=== PATIENT | male | born 1960 | race Caucasian/White ===

== ENCOUNTER 2018-01-11 09:19 | Emergency (ER) | payer MEDICAID ==
[~2018-01-11] VITALS: Ht 188 cm; Wt 82.0 kg
[2018-01-11 09:26] VITALS: BP 163/82
[2018-01-11] MEDS ORDERED: LIDOCAINE HCL 1% 20ML VIAL (Pyxis) INJ MC ONE (12:30)
[2018-01-11] MEDS ORDERED: BACITRACIN ZINC OINT UDPKT TOP ONE (12:30)
== END 2018-01-11 12:32 | disposition left against medical advice (07) ==
LOC: ER 09:19
DX: L02.414 Cutaneous abscess of left upper limb (principal); F10.20 Alcohol dependence, uncomplicated; F17.200 Nicotine dependence, unspecified, uncomplicated; Z88.0 Allergy status to penicillin; Z98.890 Other specified postprocedural states; Y90.9 Presence of alcohol in blood, level not specified
CPT/HCPCS: 99281; J3490

== ENCOUNTER 2018-01-13 01:12 | Emergency (ER) | payer MEDICAID ==
[~2018-01-13] VITALS: Ht 185.4 cm; Wt 82.0 kg
[2018-01-13 01:13] VITALS: BP 106/59
== END 2018-01-13 04:50 | disposition left against medical advice (07) ==
LOC: ER 01:12
DX: Z53.21 Procedure and treatment not carried out due to patient leaving prior to being seen by health care provider (principal)

== ENCOUNTER 2018-03-10 09:51 | Emergency (ER) | payer MEDICAID ==
[~2018-03-10] VITALS: Ht 188 cm; Wt 84.0 kg
[2018-03-10] MEDS ORDERED: KETOROLAC 60MG/2ML VIAL IM ONE (11:00)
[2018-03-10 12:15] VITALS: BP 114/73
== END 2018-03-10 12:00 | disposition home or self-care (01) ==
LOC: ER 10:19
DX: S40.011A Contusion of right shoulder, initial encounter (principal); S43.401A Unspecified sprain of right shoulder joint, initial encounter; L98.499 Non-pressure chronic ulcer of skin of other sites with unspecified severity; X50.0XXA Overexertion from strenuous movement or load, initial encounter; Y93.89 Activity, other specified; F17.210 Nicotine dependence, cigarettes, uncomplicated; Y92.89 Other specified places as the place of occurrence of the external cause; Z88.0 Allergy status to penicillin
CPT/HCPCS: 73030; 96372; 99284; J1885; A4565

== ENCOUNTER 2019-03-20 09:33 | Emergency (ER) | payer MEDICAID ==
[~2019-03-20] VITALS: Ht 188 cm; Wt 85.0 kg
[2019-03-20] MEDS ORDERED: IBUPROFEN 600MG TABLET PO ONE (10:15)
[2019-03-20] MEDS ORDERED: CLINDAMYCIN HCL 150MG CAPSULE PO SCH (10:15)
[2019-03-20 10:24] VITALS: BP 122/78
== END 2019-03-20 10:25 | disposition home or self-care (01) ==
LOC: ER 09:33
DX: L03.113 Cellulitis of right upper limb (principal); R03.0 Elevated blood-pressure reading, without diagnosis of hypertension
CPT/HCPCS: 99283; A4565

== ENCOUNTER 2019-11-06 16:18 | Emergency (ER) | payer MEDICAID ==
[~2019-11-06] VITALS: Ht 190.5 cm; Wt 82.0 kg
[2019-11-06 16:20] VITALS: BP 162/96
[2019-11-06] MEDS ORDERED: ALBUTEROL (0.083%) 2.5MG/3ML NEB HHN STA (16:40)
[2019-11-06] MEDS ORDERED: IPRATROPIUM BROMIDE (0.02%) 0.5MG/2.5ML NEB HHN STA (16:40)
[2019-11-06] MEDS ORDERED: PREDNISONE 20MG TABLET PO STA (16:40)
[2019-11-06] MEDS ORDERED: ACETAMINOPHEN 325MG TABLET PO ONE (16:45)
[2019-11-06] MEDS ORDERED: TETANUS, DIPHTHERIA, PERTUSSIS VAC/PF 0.5ML (>7YR OLD) IM ONE (17:00)
[2019-11-06] MEDS ORDERED: BACITRACIN ZINC OINT UDPKT TOP ONE (17:00)
== END 2019-11-06 18:20 | disposition left against medical advice (07) ==
LOC: ER 16:18
DX: S09.8XXA Other specified injuries of head, initial encounter (principal); S20.219A Contusion of unspecified front wall of thorax, initial encounter; S40.812A Abrasion of left upper arm, initial encounter; S40.811A Abrasion of right upper arm, initial encounter; Y04.2XXA Assault by strike against or bumped into by another person, initial encounter; Y04.8XXA Assault by other bodily force, initial encounter; Y93.89 Activity, other specified; Y92.241 Library as the place of occurrence of the external cause
CPT/HCPCS: 71045; 99283; J7512

== ENCOUNTER 2021-04-18 11:48 | Emergency (ER) | payer MEDICAID ==
[~2021-04-18] VITALS: Ht 188 cm; Wt 82.0 kg
[~2021-04-18 11:48] MED LIST: METH10OR11 MT
[2021-04-18 12:35] LABS: BASOPHILS % 0.6 % (0.0-2.0); EOSINOPHILS % 1.5 % (0.0-5.0); HEMATOCRIT. 38.5 % (42.0-52.0); HEMOGLOBIN. 12.5 g/dL (14.0-18.0); LYMPHOCYTES % 22.4 % (20.0-50.0); MEAN CORPUSCULAR HEMOGLOBIN 29.4 pg (28.0-32.0); MEAN CORPUSCULAR VOLUME 90.3 fL (80.0-94.0); MEAN PLATELET VOLUME 7.9 fl (7.4-10.4); MONOCYTES % 8.8 % (2.0-8.0); NEUTROPHILS % 66.7 % (40.0-76.0); PLATELET 186 x1000/uL (130-400); RED BLOOD CELL COUNT 4.26 mill/uL (4.7-6.1); RED CELL DISTRIBUTION WIDTH 14.9 % (11.6-14.6)
[2021-04-18 12:41] LABS: CHLORIDE 111 mEq/L (98-107)
[2021-04-18 12:45] LABS: ETHANOL BLOOD < 10 mg/dL
[2021-04-18] MEDS ORDERED: SODIUM CHLORIDE 0.9% 1,000 ML IV ONE (15:45)
[2021-04-18 16:40] LABS: BASOPHILS % 0.4 % (0.0-2.0); EOSINOPHILS % 1.5 % (0.0-5.0); HEMATOCRIT. 39.8 % (42.0-52.0); HEMOGLOBIN. 12.9 g/dL (14.0-18.0); LYMPHOCYTES % 18.7 % (20.0-50.0); MEAN CORPUSCULAR HEMOGLOBIN 29.4 pg (28.0-32.0); MEAN CORPUSCULAR VOLUME 90.6 fL (80.0-94.0); MONOCYTES % 7.5 % (2.0-8.0); NEUTROPHILS % 71.9 % (40.0-76.0); RED BLOOD CELL COUNT 4.39 mill/uL (4.7-6.1)
[2021-04-18 16:47] LABS: CHLORIDE 110 mEq/L (98-107)
[2021-04-18 16:51] LABS: D-DIMER 0.57 mg/L FEU (<0.50); PARTIAL THROMBOPLASTIN TIME 28.4 sec (23.4-31.0); PROTHROMBIN TIME 10.9 sec (9.6-11.0)
[2021-04-18 16:52] LABS: ETHANOL BLOOD < 10 mg/dL
[2021-04-18 16:53] LABS: C REACTIVE PROTEIN QUANT 4.2 mg/L (0.0-3.0)
[2021-04-18 18:14] LABS: MEAN PLATELET VOLUME 8.6 fl (7.4-10.4); PLATELET 124 x1000/uL (130-400); PLATELET ESTIMATE SLIGHTLY DECREASED
[2021-04-18 20:05] LABS: CLARITY URINE CLEAR (CLEAR); COLOR URINE DARK YELLOW (YELLOW); KETONES URINE NEGATIVE (NEGATIVE); LEUKOCYTE ESTERASE URINE NEGATIVE (NEGATIVE); NITRITE URINE NEGATIVE (NEGATIVE); OCCULT BLOOD URINE NEGATIVE (NEGATIVE); PROTEIN URINE TRACE (NEGATIVE); SPECIFIC GRAVITY URINE 1.039 (1.005-1.030)
[2021-04-18 20:06] LABS: METHADONE URINE SCREEN PRESUMTIVE POSITIVE (NEGATIVE); OPIATES URINE SCREEN PRESUMTIVE POSITIVE (NEGATIVE); PHENCYCLIDINE URINE SCREEN NEGATIVE (NEGATIVE)
[2021-04-18 20:07] LABS: *AMPHETAMINES SCREEN URINE PRESUMTIVE POSITIVE (NEGATIVE); *BENZODIAZEPINES SCREEN URINE NEGATIVE (NEGATIVE); CANNABINOID URINE SCREEN PRESUMTIVE POSITIVE (NEGATIVE)
[2021-04-18 20:09] LABS: *BARBITURATES SCREEN URINE NEGATIVE (NEGATIVE)
[2021-04-18 20:10] LABS: *COCAINE SCREEN URINE NEGATIVE (NEGATIVE)
[2021-04-18 20:30] VITALS: BP 121/72
== END 2021-04-18 20:45 | disposition home or self-care (01) ==
LOC: ER 12:06
DX: F19.10 Other psychoactive substance abuse, uncomplicated (principal); I49.9 Cardiac arrhythmia, unspecified; R51.9 Headache, unspecified
CPT/HCPCS: 36415; 70450; 71045; 80053; 80305; 80320; 81003; 83605; 83690; 83880; 84484; 85025; 85379; 85610; 85730; 86140; 86850; 86900; 86901; 87426; 93005; 96360; 96361; 99285; J7030; G0480

== ENCOUNTER 2021-09-01 12:46 | Emergency (ER) | payer MEDICAID ==
[~2021-09-01] VITALS: Ht 180.3 cm; Wt 91.0 kg
[2021-09-01 13:23] LABS: BASOPHILS % 0.5 % (0.0-2.0); EOSINOPHILS % 1.2 % (0.0-5.0); HEMATOCRIT. 36.3 % (42.0-52.0); LYMPHOCYTES % 13.5 % (20.0-50.0); MEAN CORPUSCULAR HEMOGLOBIN 28.7 pg (28.0-32.0); MEAN CORPUSCULAR VOLUME 86.5 fL (80.0-94.0); MEAN PLATELET VOLUME 7.8 fl (7.4-10.4); MONOCYTES % 7.2 % (2.0-8.0); NEUTROPHILS % 77.6 % (40.0-76.0); PLATELET 179 x1000/uL (130-400); RED BLOOD CELL COUNT 4.19 mill/uL (4.7-6.1); RED CELL DISTRIBUTION WIDTH 14.1 % (11.6-14.6)
[2021-09-01 13:32] LABS: CHLORIDE 107 mEq/L (98-107)
[2021-09-01 13:50] LABS: ETHANOL BLOOD < 10 mg/dL
[2021-09-01 15:30] VITALS: BP 125/62
== END 2021-09-01 16:27 | disposition left against medical advice (07) ==
LOC: ER 12:46
DX: T40.2X1A Poisoning by other opioids, accidental (unintentional), initial encounter (principal); F11.129 Opioid abuse with intoxication, unspecified; R41.82 Altered mental status, unspecified; R53.1 Weakness; D64.9 Anemia, unspecified; F19.10 Other psychoactive substance abuse, uncomplicated; Y93.89 Activity, other specified; Y92.038 Other place in apartment as the place of occurrence of the external cause; Z88.0 Allergy status to penicillin
CPT/HCPCS: 36415; 71045; 80053; 80307; 80320; 82140; 82962; 83880; 84484; 85025; 93005; 99285; G0480

== ENCOUNTER 2022-07-08 11:07 | Emergency (ER) | payer MEDICAID ==
[~2022-07-08] VITALS: Ht 177.8 cm; Wt 77.5 kg
[2022-07-08] MEDS ORDERED: ONDANSETRON 4MG ODT PO STA (11:10)
[2022-07-08 11:17] VITALS: BP 177/85
== END 2022-07-08 11:24 | disposition left against medical advice (07) ==
LOC: ER 11:07
DX: T40.2X1A Poisoning by other opioids, accidental (unintentional), initial encounter (principal); R00.0 Tachycardia, unspecified; J44.9 Chronic obstructive pulmonary disease, unspecified; M19.90 Unspecified osteoarthritis, unspecified site; F12.10 Cannabis abuse, uncomplicated; F11.10 Opioid abuse, uncomplicated; F17.210 Nicotine dependence, cigarettes, uncomplicated; Z86.19 Personal history of other infectious and parasitic diseases; Z98.1 Arthrodesis status; Z85.9 Personal history of malignant neoplasm, unspecified; Z88.0 Allergy status to penicillin; Y92.018 Other place in single-family (private) house as the place of occurrence of the external cause
CPT/HCPCS: 99283

== ENCOUNTER 2022-08-07 10:09 | Emergency (ER) | payer MEDICAID ==
[~2022-08-07] VITALS: Ht 180.3 cm; Wt 85.0 kg
[2022-08-07 10:54] VITALS: BP 153/110
[2022-08-07 12:09] LABS: HEMATOCRIT. 41.7 % (42.0-52.0); MEAN CORPUSCULAR HEMOGLOBIN 30.8 pg (28.0-32.0); MEAN CORPUSCULAR VOLUME 91.7 fL (80.0-94.0); MEAN PLATELET VOLUME 8.3 fl (7.4-10.4); PLATELET 288 x1000/uL (130-400); RED BLOOD CELL COUNT 4.55 mill/uL (4.7-6.1); RED CELL DISTRIBUTION WIDTH 14.2 % (11.6-14.6)
[2022-08-07 12:16] LABS: CHLORIDE 108 mEq/L (98-107)
[2022-08-07 12:23] LABS: ETHANOL BLOOD < 10 mg/dL
[2022-08-07 12:41] LABS: PLATELET ESTIMATE NORMAL
== END 2022-08-07 11:35 | disposition left against medical advice (07) ==
LOC: ER 10:09
DX: R55 Syncope and collapse (principal); J44.9 Chronic obstructive pulmonary disease, unspecified; F12.10 Cannabis abuse, uncomplicated; F11.10 Opioid abuse, uncomplicated; Z88.0 Allergy status to penicillin
CPT/HCPCS: 36415; 71045; 80053; 80320; 85025; 93005; 99285; Z7610; G0480

== ENCOUNTER 2022-09-18 17:25 | Emergency (ER) | payer MEDICAID ==
[~2022-09-18] VITALS: Ht 180.3 cm; Wt 82.0 kg
[2022-09-18 17:27] VITALS: BP 126/81
[2022-09-18 19:53] LABS: BASOPHILS % 0.3 % (0.0-2.0); EOSINOPHILS % 0.7 % (0.0-5.0); HEMATOCRIT. 40.5 % (42.0-52.0); HEMOGLOBIN. 13.5 g/dL (14.0-18.0); LYMPHOCYTES % 17.2 % (20.0-50.0); MEAN CORPUSCULAR HEMOGLOBIN 30.2 pg (28.0-32.0); MEAN CORPUSCULAR VOLUME 90.7 fL (80.0-94.0); MEAN PLATELET VOLUME 8.2 fl (7.4-10.4); MONOCYTES % 7.4 % (2.0-8.0); NEUTROPHILS % 74.4 % (40.0-76.0); PLATELET 180 x1000/uL (130-400); RED BLOOD CELL COUNT 4.46 mill/uL (4.7-6.1); RED CELL DISTRIBUTION WIDTH 13.7 % (11.6-14.6)
[2022-09-18 19:56] LABS: CHLORIDE 109 mEq/L (98-107)
[2022-09-18 19:58] LABS: PROTHROMBIN TIME 10.7 sec (9.6-11.0)
[2022-09-18 20:05] LABS: ETHANOL BLOOD < 10 mg/dL
== END 2022-09-19 00:26 | disposition left against medical advice (07) ==
LOC: ER 17:35
DX: R42 Dizziness and giddiness (principal); J44.9 Chronic obstructive pulmonary disease, unspecified; Z85.9 Personal history of malignant neoplasm, unspecified; F12.10 Cannabis abuse, uncomplicated; Z88.0 Allergy status to penicillin
CPT/HCPCS: 36415; 80053; 80320; 83880; 84484; 85025; 93005; 99284; G0480

== ENCOUNTER 2022-11-04 11:40 | Emergency (ER) | payer MEDICAID ==
[~2022-11-04] VITALS: Ht 182.9 cm; Wt 75.0 kg
[2022-11-04 12:57] LABS: BASOPHILS % 0.3 % (0.0-2.0); EOSINOPHILS % 0.3 % (0.0-5.0); HEMATOCRIT. 47.5 % (42.0-52.0); HEMOGLOBIN. 15.3 g/dL (14.0-18.0); LYMPHOCYTES % 9.5 % (20.0-50.0); MEAN CORPUSCULAR HEMOGLOBIN 30.2 pg (28.0-32.0); MEAN CORPUSCULAR VOLUME 93.8 fL (80.0-94.0); MEAN PLATELET VOLUME 8.2 fl (7.4-10.4); MONOCYTES % 6.4 % (2.0-8.0); NEUTROPHILS % 83.5 % (40.0-76.0); PLATELET 253 x1000/uL (130-400); RED BLOOD CELL COUNT 5.06 mill/uL (4.7-6.1); RED CELL DISTRIBUTION WIDTH 14.9 % (11.6-14.6)
[2022-11-04 13:00] VITALS: BP 162/103
[2022-11-04] MEDS ORDERED: KETOROLAC 30MG/ML VIAL IM ONE (13:00)
[2022-11-04 13:01] LABS: CHLORIDE 106 mEq/L (98-107)
[2022-11-04] MEDS ORDERED: NAPR500T7 MT ×2 (13:18)
[2022-11-04] MEDS ORDERED: TOPUD MT (13:29)
[2022-11-04] MEDS ORDERED: IMOD MT (13:29)
== END 2022-11-04 13:32 | disposition home or self-care (01) ==
LOC: ER 11:40
DX: R19.7 Diarrhea, unspecified (principal); R09.81 Nasal congestion; M79.10 Myalgia, unspecified site; M19.90 Unspecified osteoarthritis, unspecified site; F11.90 Opioid use, unspecified, uncomplicated; J44.9 Chronic obstructive pulmonary disease, unspecified; I10 Essential (primary) hypertension; F12.90 Cannabis use, unspecified, uncomplicated; Z88.0 Allergy status to penicillin; Z59.00 Homelessness unspecified
CPT/HCPCS: 36415; 80053; 85025; 99283; J1885; Z7610